=== PATIENT | female | born 1980 | race Caucasian/White ===

== ENCOUNTER 2024-06-17 10:08 | Inpatient (IN) | payer OTHER ==
[2024-06-17] VITALS (9 sets, daily range): BP systolic 153–198; BP diastolic 108–139
[~2024-06-17] VITALS: Ht 165.1 cm; Wt 90.7 kg
[2024-06-17 12:12] LABS: BILIRUBIN Negative (Negative); BLOOD Negative (Negative); CLARITY Clear (Clear); COLOR Yellow (Yellow); GLUCOSE Negative (Negative); KETONE Negative (Negative); LEUKO ESTERASE Negative (Negative); NITRITE Negative (Negative); SPECIFIC GRAVITY 1.015 (1.001-1.030)
[2024-06-17 12:13] LABS: BASO # 0.1 10*3/uL (0.0-0.1); EOS # 0.1 10*3/uL (0.0-0.4); EOS % 1.9 % (1.0-4.0); HEMATOCRIT 47.7 % (37.0-47.0); LYMPH # 2.8 10*3/uL (1.3-4.4); LYMPH % 39.9 % (27.0-41.0); MEAN CELL VOLUME 96.8 fl (81.0-99.0); MEAN CORPUSCULAR HGB 33.1 pg (27.0-31.0); MEAN CORPUSCULAR HGB CONC 34.2 g/dl (33.0-37.0); MEAN PLATELET VOLUME 10.2 fl (9.6-12.3); MONO # 0.4 10*3/uL (0.1-1.0); MONO % 5.3 % (3.0-9.0); NEUT # 3.6 10*3/uL (2.3-7.9); NEUT % 51.5 % (47.0-73.0); PLATELET COUNT AUTOMATED 236 10*3/uL (130-400); RED BLOOD COUNT 4.93 10*6/uL (4.10-5.10); RED CELL DISTRI WIDTH 12.5 % (0-14.5)
[2024-06-17 12:22] LABS: WBC 0-2 wbc/hpf (0-5)
[2024-06-17 12:27] LABS: BUN 6 mg/dl (9-23); CHLORIDE 101 mmol/L (98-107); POTASSIUM 4.1 mmol/L (3.4-5.1)
[2024-06-17] MEDS ORDERED: Labetalol Hydrochloride 20 MG/4 ML SYR IV ONE ×2 (12:35→15:10)
[2024-06-17] MEDS ORDERED: Ondansetron Hydrochloride 4 MG/2 ML VIAL IV PRN (15:10)
[2024-06-17] MEDS ORDERED: MORPHINE Sulfate 2 MG/ML SYR IV PRN (15:10)
[2024-06-17] MEDS ORDERED: BISACODYL 5 MG TAB PO PRN (15:10)
[2024-06-17] MEDS ORDERED: BENZONATATE 100 MG CAP PO PRN (20:45)
[2024-06-17] MEDS ORDERED: Benzocaine/Menthol 1 LOZ LOZENGE PO PRN (23:30)
[2024-06-18] MEDS ORDERED: ACETAMINOPHEN 325 MG TAB PO PRN (03:45)
[2024-06-18 04:10] VITALS: BP 167/109
[2024-06-18 04:57] VITALS: BP 158/104
[2024-06-18 05:45] VITALS: BP 133/78
[2024-06-18 06:24] LABS: BASO # 0.1 10*3/uL (0.0-0.1); BASO % 1.1 % (0.0-1.0); EOS # 0.2 10*3/uL (0.0-0.4); EOS % 2.9 % (1.0-4.0); HEMATOCRIT 44.2 % (37.0-47.0); LYMPH # 2.3 10*3/uL (1.3-4.4); LYMPH % 42.1 % (27.0-41.0); MEAN CELL VOLUME 96.1 fl (81.0-99.0); MEAN CORPUSCULAR HGB 33.3 pg (27.0-31.0); MEAN CORPUSCULAR HGB CONC 34.6 g/dl (33.0-37.0); MEAN PLATELET VOLUME 10.3 fl (9.6-12.3); MONO # 0.3 10*3/uL (0.1-1.0); MONO % 6.1 % (3.0-9.0); NEUT # 2.6 10*3/uL (2.3-7.9); NEUT % 47.4 % (47.0-73.0); PLATELET COUNT AUTOMATED 194 10*3/uL (130-400); RED CELL DISTRI WIDTH 12.7 % (0-14.5); WHITE BLOOD COUNT 5.4 10*3/uL (4.8-10.8)
[2024-06-18 06:53] LABS: ALKALINE PHOSPHATASE 59 U/L (46-116); BUN 7 mg/dl (9-23); CHLORIDE 100 mmol/L (98-107); CHOLESTEROL 237 mg/dL (<200); FREE T4 1.08 ng/dl (0.89-1.76); LDL CHOLESTEROL 139 mg/dL (9-159); SGPT/ALT 110 U/L (5-49); TRIGLYCERIDES 220 mg/dl (<150)
[2024-06-18 08:00] VITALS: BP 158/101
[2024-06-18 09:06] LABS: VITAMIN D, 25-HYDROXY 29.6 ng/mL (30-100)
[2024-06-18 09:39] VITALS: BP 185/113
[2024-06-18] MEDS ORDERED: Losartan Potassium 25 MG TAB PO SCH (10:00)
[2024-06-18] MEDS ORDERED: Enoxaparin Sodium 40 MG/0.4 ML SYR SC SCH (10:00)
[2024-06-18] MEDS ORDERED: LOSARTAN POTASS50 M1 PO (12:30)
[2024-06-18] MEDS ORDERED: ROSUVASTATIN CA10 MG PO (12:30)
[2024-06-19] MEDS ORDERED: Cholecalciferol 2,000 UNIT TABLET (50 MCG) PO SCH (10:00)
== END 2024-06-18 15:41 | disposition home or self-care (01) | DRG 305 ==
LOC: ED 10:08 → EDHOLD 14:36
PROVIDERS: Internal Medicine; Student in an Organized Health Care Education/Training Program; ADMIT Internal Medicine; ATTEND Internal Medicine
DX: I16.1 Hypertensive emergency (principal); E87.1 Hypo-osmolality and hyponatremia; D75.1 Secondary polycythemia; G89.29 Other chronic pain; R73.9 Hyperglycemia, unspecified; E78.2 Mixed hyperlipidemia; E55.9 Vitamin D deficiency, unspecified; I70.1 Atherosclerosis of renal artery; Z90.49 Acquired absence of other specified parts of digestive tract; Z80.3 Family history of malignant neoplasm of breast

== ENCOUNTER → 2024-07-01 | Outpatient (CLI) | payer OTHER ==
[~2024-07-01] MED LIST: Albuterol Sulfate 2.5 MG/3 ML VIAL NEB ONE; LOSARTAN POTASS50 M1 PO; ROSUVASTATIN CA10 MG PO
== END | disposition home or self-care (01) ==
LOC: CP 09:30
PROVIDERS: ATTEND Student in an Organized Health Care Education/Training Program
DX: R05.3 Chronic cough (principal)

== ENCOUNTER → 2024-07-22 | Outpatient (CLI) | payer OTHER ==
[~2024-07-22] MED LIST changes: -Albuterol Sulfate 2.5 MG/3 ML VIAL NEB ONE
[2024-07-22 09:42] LABS: ALKALINE PHOSPHATASE 58 U/L (46-116); BUN 9 mg/dl (9-23); CHLORIDE 104 mmol/L (98-107); POTASSIUM 4.5 mmol/L (3.4-5.1); SGPT/ALT 57 U/L (5-49); TOTAL PROTEIN 7.9 gm/dL (6.0-8.0)
== END | disposition home or self-care (01) ==
LOC: LAB 08:25
PROVIDERS: Student in an Organized Health Care Education/Training Program; ATTEND Family Medicine
DX: I10 Essential (primary) hypertension (principal)

== ENCOUNTER → 2025-06-15 | Outpatient (CLI) | payer OTHER ==
[2025-06-15 16:52] LABS: BUN 22.0 mg/dl (9-23)
== END | disposition home or self-care (01) ==
LOC: LAB 15:31
PROVIDERS: ATTEND Internal Medicine Nephrology
DX: I15.8 Other secondary hypertension (principal)